=== PATIENT | female | born 1930 | race Caucasian/White ===

== ENCOUNTER → 2016-11-03 | Outpatient (CLI) | payer MEDICARE, OTHER ==
[~2016-11-03] MED LIST: ASA CHILDREN'S81 MG PO; FISH OIL 1,2001 EACH PO; FOSAMAX70 MG PO; IMDUR DPS30 MG PO; MAG-OX400 MG PO; NORVASC5 MG PO; OCUVITE WITH L1 EACH PO; PROVENTIL2.5 MG/3 M IH; TRANXENE DPS PO; TYLENOL DPS325 MG PO; ZOCOR DPS40 MG PO
== END | disposition home or self-care (01) ==
LOC: RESC 10-24 15:12
DX: J44.9 Chronic obstructive pulmonary disease, unspecified (principal); Z82.62 Family history of osteoporosis; M81.0 Age-related osteoporosis without current pathological fracture; M85.88 Other specified disorders of bone density and structure, other site

== ENCOUNTER → 2017-02-09 | Outpatient (CLI) | payer MEDICARE, OTHER | END | disposition home or self-care (01) | DX: G47.33 Obstructive sleep apnea (adult) (pediatric) (principal) ==